=== PATIENT | female | born 1955 | race Caucasian/White ===

== ENCOUNTER → 2018-01-20 | Outpatient (CLI) | payer OTHER ==
--- NOTE | 2018-01-21 16:22 | RADIOLOGY IMAGING REPORT ---
FACILITY: [facility] PATIENT NAME: VALENCIA ACEVES : [id number] MR: [id number] V: [id number] EXAM DATE: ORDERING PHYSICIAN: CATERINA PAEZ TECHNOLOGIST: Yaquelin Canales PROCEDURE:BILATERAL DIGITAL SCREENING MAMMOGRAM WITH CAD ASSISTED INTERPRETATION & 3D TOMOSYNTHESIS COMPARISON:Prior mammograms 01/14/17, 01/14/16, 11/20/14, 11/07/13, 10/25/13, 08/09/12. INDICATIONS:SCREENING FINDINGS: Mildly heterogeneous fibroglandular tissue is seen throughout the breasts. The parenchymal pattern has remained stable allowing for difference in mammographic technique & patient positioning. There is no evidence of malignant appearing mass, malignant appearing calcifications or other secondary sign of malignancy in either breast. DIAGNOSTIC CATEGORY 1--NEGATIVE. RECOMMENDATIONS: ROUTINE MAMMOGRAM AND CLINICAL EVALUATION. IMPRESSION: BIRADS 1: Negative No significant abnormality is seen. Dictated by: Mali Tena M.D. on 01/20/2018 at 16:17 Transcribed by: YUNG on 01/21/2018 at 8:51 Approved by: Mali Tena M.D. on 01/21/2018 at 16:21 [facility]
== END ==
LOC: MAMO 01:22
PROVIDERS: ATTEND Obstetrics & Gynecology
DX: Z12.31 Encounter for screening mammogram for malignant neoplasm of breast (principal)
CPT/HCPCS: 77063; 77067